=== PATIENT | male | born 1960 | race Caucasian/White ===

== ENCOUNTER 2023-08-30 06:44 | Outpatient (RCR) | payer OTHER, MEDICAID, SELFPAY | END 2023-08-30 23:59 | disposition home or self-care (01) | LOC: CRHB 06:44 | PROVIDERS: ATTENDING PHYSICIAN Internal Medicine Cardiovascular Disease | DX: I25.10 Atherosclerotic heart disease of native coronary artery without angina pectoris (principal); Z95.1 Presence of aortocoronary bypass graft | CPT/HCPCS: G0422; G0423 ==

== ENCOUNTER → 2023-08-31 10:32 | Outpatient (REF) | payer OTHER, MEDICAID, SELFPAY | LOC: DHCBC MAIN 10:32 | PROVIDERS: ATTENDING PHYSICIAN Nurse Practitioner | DX: I25.5 Ischemic cardiomyopathy (principal) | CPT/HCPCS: 93308 ==

== ENCOUNTER 2023-09-27 07:23 | Outpatient (RCR) | payer OTHER, MEDICAID, SELFPAY | END 2023-09-27 23:59 | disposition home or self-care (01) | LOC: CRHB 07:23 | PROVIDERS: ATTENDING PHYSICIAN Internal Medicine Cardiovascular Disease | DX: I25.10 Atherosclerotic heart disease of native coronary artery without angina pectoris (principal); Z95.1 Presence of aortocoronary bypass graft | CPT/HCPCS: G0422; G0423 ==

== ENCOUNTER → 2024-10-15 07:06 | Outpatient (REF) | payer OTHER, MEDICAID, SELFPAY | LOC: RCS 07:06 | PROVIDERS: ATTENDING PHYSICIAN Internal Medicine Cardiovascular Disease | DX: I25.10 Atherosclerotic heart disease of native coronary artery without angina pectoris (principal); I25.5 Ischemic cardiomyopathy; I77.810 Thoracic aortic ectasia | CPT/HCPCS: 93306 ==